=== PATIENT | male | born 1970 | race Caucasian/White ===

== ENCOUNTER 2017-04-30 10:50 | Emergency (ER) | payer SELFPAY ==
[~2017-04-30] VITALS: Ht 182.9 cm; Wt 104.5 kg
[2017-04-30 10:58] VITALS: BP 125/63; PULSE 95; RESP 16; TEMP 97.6; O2SAT 94
--- NOTE | 2017-04-30 12:10 | PD ---
HPI Chief Complaint: Respiratory Symptoms Time Seen by Provider: 12:01 Travel History International Travel<30 days: No Contact w/Intl Traveler<30days: No Traveled to known affect area: No History of Present Illness HPI This is a patient with history of asthma. He complains of wheezing and shortness of breath. It's been progressing over 2 weeks. Severity is moderate. No alleviating factors. He quit smoking 6 months ago. He denies fever or chest pain or productive cough. No exacerbating factors PFSH Past Medical History Hx Anticoagulant Therapy: No Asthma: Yes Cardiovascular Problems: No Chemotherapy: No Cerebrovascular Accident: No Diabetes: No Respiratory: Yes (ASTHMA) Social History Alcohol Use: Yes Tobacco Use: No Substance Use: No Allergies-Medications (Allergen,Severity, Reaction): Coded Allergies: No Known Allergies (Unverified , 04/30/17) Reported Meds & Prescriptions Reported Meds & Active Scripts Active No Active Prescriptions or Reported Medications Review of Systems General / Constitutional: No: Fever Eyes: No: Visual changes HENT: No: Headaches Cardiovascular: No: Chest Pain or Discomfort Respiratory: Positive: Shortness of Breath, Wheezing Gastrointestinal: No: Abdominal Pain Genitourinary: No: Dysuria Musculoskeletal: No: Pain Skin: No Rash Neurologic: No: Weakness Psychiatric: No: Depression Endocrine: No: Polydipsia Hematologic/Lymphatic: No: Easy Bruising Physical Exam Narrative GENERAL: Well-nourished, well-developed patient with wheezing . SKIN: Focused skin assessment reveals no rash and nodules. Skin is Warm and dry. HEAD: Atraumatic. Normocephalic. EYES: Pupils equal and round. No scleral icterus. No injection or drainage. ENT: No nasal bleeding or discharge. Mucous membranes pink and moist. NECK: Trachea midline. No JVD. CARDIOVASCULAR: Regular rate and rhythm. No murmur appreciated. RESPIRATORY: No accessory muscle use. Diffuse expiratory wheeze . Breath sounds equal bilaterally. GASTROINTESTINAL: Abdomen soft, non-tender, nondistended. Hepatic and splenic margins not palpable. MUSCULOSKELETAL: No obvious deformities. No clubbing. No cyanosis. No edema. NEUROLOGICAL: Awake and alert. No obvious cranial nerve deficits. Motor grossly within normal limits. Normal speech. PSYCHIATRIC: Appropriate mood and affect; insight and judgment normal. Data Data Last Documented VS Vital Signs Date Time Temp Pulse Resp B/P (MAP) Pulse Ox O2 Delivery O2 Flow Rate FiO2 04/30/17 13:39 97 Room Air 04/30/17 10:58 97.6 95 16 125/63 (83) Orders Orders Albuterol-Ipratropium Neb (Duoneb Neb) (04/30/17 12:15) Prednisone (Deltasone) (04/30/17 12:15) MDM Medical Decision Making Medical Screen Exam Complete: Yes Emergency Medical Condition: Yes Medical Record Reviewed: Yes Differential Diagnosis Asthma exacerbation, bronchitis, pneumonia Narrative Course I have reviewed the patient's electronic medical record. This is an asthmatic who is having active dyspnea and wheezing I gave him multiple nebulizer treatments I gave him 80 mg prednisone After nebulizers he is breathing much better I prescribed him an albuterol inhaler and 5 days of prednisone Diagnosis Primary Impression: Asthma with acute exacerbation in adult Qualified Codes: J45.21 - Mild intermittent asthma with (acute) exacerbation Additional Instructions: The patient was advised to follow up with their physician and return if they worsen. Med/Other Pt SpecificInfo: Prescription(s) given Scripts Prednisone (Prednisone) 20 Mg Tab 40 MG PO DAILY, #10 TAB 0 Refills Take 40 mg (2 tablets) daily for 5 days Prov: Renzo Lake MD 04/30/17 Albuterol 18 GM Inh (Ventolin Hfa 18 GM Inh) 90 Mcg/Act Aer 2 PUFF INH Q4H Y for SHORTNESS OF BREATH, #1 INHALER 0 Refills Prov: Renzo Lake MD 04/30/17 Disposition: 01 DISCHARGE HOME Condition: Stable Renzo Lake MD Apr 30, 2017 12:10
[2017-04-30] MEDS ORDERED: predniSONE 20 MG TAB PO ONE (12:15)
[2017-04-30] MEDS: RESP: ALBUTEROL 2.5 MG/IPRATROPIUM 0.5 MG NEB (SCH) INH (12:23)
[2017-04-30] MEDS ORDERED: PRED20 PO (14:18)
[2017-04-30] MEDS ORDERED: VENTAER INH (14:18)
== END 2017-04-30 14:51 | disposition home or self-care (01) ==
LOC: NEPD 10:50
DX: J45.901 Unspecified asthma with (acute) exacerbation (principal)
CPT/HCPCS: 94640; 94664; 99283; J7512